=== PATIENT | male | born 1960 | race Caucasian/White ===

== ENCOUNTER 2017-11-12 12:52 | Emergency (ER) | payer MEDICAID | END 2017-11-12 15:52 | disposition home or self-care (01) | LOC: D.ER 12:52 | DX: M25.551 Pain in right hip (principal); W01.0XXA Fall on same level from slipping, tripping and stumbling without subsequent striking against object, initial encounter; Y93.89 Activity, other specified; Y92.019 Unspecified place in single-family (private) house as the place of occurrence of the external cause; J44.9 Chronic obstructive pulmonary disease, unspecified; I10 Essential (primary) hypertension ==

== ENCOUNTER → 2017-12-11 13:24 | Outpatient (CLI) | payer MEDICAID ==
[~2017-12-11 13:24] MED LIST: ACIDOPHILUS LAC1 CAP PO; AMITRIPTYLINE100 MG PO; BUSPAR10 MG PO; COMBIVENT RESPIM4 GM INH; COZAAR50 MG PO; DICLOFENAC SODI50 MG PO; HYDROCHLOROTHIA25 MG PO; KLOR-CON20 MEQ/PKT PO; LIPITOR20 MG PO; NIASPAN500 MG PO; NORVASC10 MG PO; OMEPRAZOLE20 M1 PO; PERCOCET 10/3251 TA1 PO; WELLBUTRIN SR150 MG PO; ZANAFLEX4 MG PO; ZYLOPRIM100 MG PO
[2018-02-03 13:10] VITALS: BMI 36.2
== END | disposition home or self-care (01) ==
LOC: D.MRI 13:24
DX: M87.851 Other osteonecrosis, right femur (principal)

== ENCOUNTER → 2017-12-23 20:26 | Outpatient (CLI) | payer MEDICAID ==
[~2017-12-23 20:26] MED LIST changes: +DILAUDID4 MG PO; +ELIQUIS2.5 MG PO
[2018-02-03 13:10] VITALS: BMI 36.2
== END | disposition home or self-care (01) ==
LOC: D.LABREF 20:26
DX: M87.88 Other osteonecrosis, other site (principal); Z11.8 Encounter for screening for other infectious and parasitic diseases

== ENCOUNTER 2018-01-28 10:00 | Inpatient (IN) | payer MEDICAID ==
[~2018-01-28] VITALS: Ht 185.4 cm; Wt 124.7 kg
--- NOTE | ~2018-01-28 | OP ---
PATIENT NAME: RAFFI OHARA MEDICAL RECORD: [id number] :56 LOCATION:[id number] ADMISSION DATE:02/02/18 SURGEON: STACIE STEWARD MD DATE OF OPERATION: 02/02/2018 PREOPERATIVE DIAGNOSIS: Avascular necrosis of the right femoral head. POSTOPERATIVE DIAGNOSIS: Avascular necrosis of the right femoral head. PROCEDURE: Right total hip arthroplasty. SURGEON: Stacie Steward MD MANAGER ENVIRONMENTAL HEALTH: YULY Rainey. INTRAOPERATIVE COMPLICATIONS: None. SUMMARY OF PATHOLOGIC FINDINGS: Consistent with the preoperative diagnosis of collapsed AVN. The patient had substantial collapse of the hip. IMPLANTS USED: [place] Anato hip system, size 6 stem, size 36 -5 femoral head, size 56 mm Tritanium hemispherical cluster hole shell, a Trident X3 0-degree insert polyethylene alpha code E. ESTIMATED BLOOD LOSS: 200 cc. APPROACH: Anterior lateral. OPERATIVE SUMMARY IN DETAIL: After obtaining the appropriate preoperative orthopedic surgery consent as well as anesthetic consultation, evaluation and clearance, the patient was brought to the operating room and placed on the operating table in supine position. After general laryngeal mask airway was administered, the patient was placed in the left lateral decubitus position. All pressure points well padded to include down leg peroneal pad as well as axillary roll. The patient was held firmly to the operating table using the vacuum pack suction system. Right lower extremity and hip were then prepped and draped in a routine sterile fashion. Curvilinear incision was made over the greater trochanter, taken down to all the IT band, was split in line with fibers of the IT band to reveal the greater trochanter. Gluteus medius minimus was reflected anteriorly and saved for later reapproximation. The hip capsule was split in a T-type fashion. The patient had a very large capsule. Partial capsulectomy was performed. The hip was dislocated and femoral neck cut was made using the femoral neck cutting guide for the Anato hip system. Having completed this, the acetabulum was approached. Circumferential labrectomy was then followed by serial and sequential reaming to 55. A size [address] with excellent capture. A 0-degree polyethylene alpha code E was then put into place, tamped into place, and checked with juvencio Telles. It was stable. Having completed this, attention was turned to the proximal femur. Serial and sequential reaming and broaching were done for a size 6 Anato stem. The size 6 Anato stem was put into place with excellent fit and fill. Trial was undertaken and for leg length equality. It was felt that the -5 was the most appropriate. A -5 Biolox head was put into place, tamped on the Alvarado taper, reduced, taken through range of motion and found to be stable in all planes. Intraoperative radiographs showed good position and placement with anatomical leg length recovery. The wound was copiously irrigated at additional multiple points. At OPERATIVE REPORT [id number] RAFFI OHARA W this point, Cesar Mccartney began closure. Closure was achieved with #5 Vicryl reapproximated to the greater trochanter in a transosseous fashion. This was then followed by closure of the #2 Ethibond of the IT band, followed by #1 Vicryl, 2-0 Vicryl and skin blas. Sterile dressings were applied. The patient was awakened and taken to recovery room in stable condition. All final needle and sponge counts were correct. TRANSINT:[id number] Voice Confirmation ID: [id number] DOCUMENT ID: [id number] NICHELLE PLEITEZ, STACIE LEVINE at 1558 CC: [id number] DICTATION DATE: 02/02/18926 AUTOCLAVE OPERATOR: 02/02/18 1149 ADM IN [place] [id number] [place] [id number]
[~2018-01-28 10:00] MED LIST changes: -DILAUDID4 MG PO; -ELIQUIS2.5 MG PO; -PERCOCET 10/3251 TA1 PO
[2018-01-28 11:45] LABS: BASOPHILS 0.6 % (0-2); HEMATOCRIT 45.1 % (42.0-54.0); HEMOGLOBIN 15.3 g/dL (13.5-17.5); IMMATURE GRANULOCYTES 0.1 % (0-5); LYMPHOCYTES 35.2 % (15-50); MCH 31.9 pg (26.0-34.0); MCHC 33.9 g/dL (31.0-37.0); MCV 94.2 fL (80.0-100.0); MONOCYTES 12.5 % (2-11); NEUTROPHILS 45.6 % (40-80); RBC 4.79 10x6/uL (4.20-6.10); RDW 13.1 % (11.5-14.5); WBC 8.5 10x3/uL (4.8-10.8)
[2018-01-28 11:47] LABS: APPEARANCE CLEAR (CLEAR); BILIRUBIN NEGATIVE (NEGATIVE); COLOR YELLOW (YELLOW); GLUCOSE NEGATIVE (NEGATIVE); KETONE NEGATIVE (NEGATIVE); NITRITE NEGATIVE (NEGATIVE); PROTEIN NEGATIVE (NEGATIVE); SPECIFIC GRAVITY 1.015 (1.005-1.020)
[2018-01-28 11:56] LABS: ANION GAP 10.8 mmol/L (8-16); APTT 27.1 SECONDS (22.8-39.4); CALCIUM 8.5 mg/dL (8.5-10.1); CARBON DIOXIDE 31.3 mmol/L (21.0-32.0); CREATININE - SERUM 1.1 mg/dL (0.6-1.3); INR 0.98 (0.85-1.17); POTASSIUM - SERUM 3.1 mmol/L (3.5-5.1); PROTIME 12.6 SECONDS (11.6-15.0)
[2018-01-28 12:15] LABS: PLATELET COUNT 257 10x3/uL (130-400)
[2018-02-02] MEDS ORDERED: PERCOCET 10/3251 TA1 PO (05:23)
[2018-02-02 05:25] VITALS: BP 118/74; BMI 36.3
[2018-02-02 11:00] VITALS: BP 113/81; BMI 36.3
[2018-02-02 11:01] VITALS: BP 113/81
[2018-02-02 11:15] VITALS: BP 121/81
[2018-02-02 11:37] VITALS: BP 118/68
[2018-02-02 21:44] VITALS: BP 119/66
[2018-02-03 00:54] VITALS: BP 133/74
[2018-02-03 04:00] VITALS: BP 108/74
[2018-02-03 07:27] LABS: HEMATOCRIT 36.8 % (42.0-54.0); HEMOGLOBIN 12.2 g/dL (13.5-17.5); MCH 31.9 pg (26.0-34.0); MCHC 33.2 g/dL (31.0-37.0); MCV 96.1 fL (80.0-100.0); MEAN PLATELET VOLUME 10.5 fL (7.4-10.4); RBC 3.83 10x6/uL (4.20-6.10); RDW 13.9 % (11.5-14.5); WBC 12.5 10x3/uL (4.8-10.8)
[2018-02-03 08:45] VITALS: BP 127/71
[2018-02-03 12:36] VITALS: BP 123/68
[2018-02-03 13:10] VITALS: Ht 185.4 cm; Wt 124.7 kg
[2018-02-03 16:36] VITALS: BP 101/67
[2018-02-03 20:23] VITALS: BP 134/63
[2018-02-04 04:00] VITALS: BP 112/74
[2018-02-04 07:25] LABS: HEMATOCRIT 31.9 % (42.0-54.0); HEMOGLOBIN 10.7 g/dL (13.5-17.5); MCH 31.6 pg (26.0-34.0); MCHC 33.5 g/dL (31.0-37.0); MEAN PLATELET VOLUME 9.9 fL (7.4-10.4); RBC 3.39 10x6/uL (4.20-6.10); RDW 13.6 % (11.5-14.5); WBC 10.3 10x3/uL (4.8-10.8)
[2018-02-04 07:27] LABS: MCV 94.1 fL (80.0-100.0)
[2018-02-04 09:09] VITALS: BP 107/65
[2018-02-04 12:14] VITALS: BP 137/55
[2018-02-04 15:45] VITALS: BP 120/71
[2018-02-04 20:00] VITALS: BP 124/62
[2018-02-05] VITALS: BP 137/59
[2018-02-05 04:00] VITALS: BP 153/85
[2018-02-05] MEDS ORDERED: ELIQUIS2.5 MG PO (06:46)
[2018-02-05] MEDS ORDERED: DILAUDID4 MG PO (06:47)
[2018-02-05 08:24] VITALS: BP 133/67
== END 2018-02-05 12:04 | disposition home or self-care (01) | DRG 470 ==
LOC: D.SDCHOLD 10:00 → D.MS 02-02 05:00 → D.SDCHOLD 02-02 05:00 → D.MS 02-02 10:41
PROVIDERS: Anesthesiology; Orthopaedic Surgery
PROC: 0SR90JZ Replacement of Right Hip Joint with Synthetic Substitute, Open Approach (ICD-10-PCS; principal; 2018-02-02 07:30)
DX: M87.9 Osteonecrosis, unspecified (principal); J44.9 Chronic obstructive pulmonary disease, unspecified; F41.9 Anxiety disorder, unspecified; I10 Essential (primary) hypertension; E78.5 Hyperlipidemia, unspecified; M1A.9XX0 Chronic gout, unspecified, without tophus (tophi)

== ENCOUNTER 2018-02-09 10:24 | Inpatient (IN) | payer MEDICAID ==
[2018-02-09] VITALS (7 sets, daily range): BP systolic 127–140; BP diastolic 74–85
[~2018-02-09] VITALS: Ht 185.4 cm; Wt 124.7 kg
--- NOTE | ~2018-02-09 | OP ---
PATIENT NAME: RAFFI OHARA MEDICAL RECORD: [id number] :56 LOCATION:[id number] ADMISSION DATE:02/09/18 SURGEON: STACIE STEWARD MD DATE OF OPERATION: 02/12/2018 PREOPERATIVE DIAGNOSIS: Periprosthetic fracture of the right hip, status post total hip arthroplasty. POSTOPERATIVE DIAGNOSIS: Periprosthetic fracture of the right hip, status post total hip arthroplasty. PROCEDURE: Revision right total hip arthroplasty. SURGEON: Stacie Steward MD ANESTHESIA: General. INTRAOPERATIVE COMPLICATIONS: None. SUMMARY OF PATHOLOGIC FINDINGS: Unfortunately, the patient's medial calcar had broken in the postoperative period. Evidently, the patient made a misstep, caught himself on the steps and then presented to the ER with inability to ambulate. Subsequent radiograph showed periprosthetic fracture of the medial calcar. He was on Eliquis. Therefore, we had to wait the appropriate 72 hours prior to operative intervention that was done and he presented for intervention today. IMPLANTS USED: InSupply nondenominational modular system with a 235 x 14 stem, 36 + 0 femoral head and a 21 proximal body. ESTIMATED BLOOD LOSS: 300 cc. OPERATIVE SUMMARY IN DETAIL: After obtaining the appropriate preoperative orthopedic surgery consent as well as anesthetic consultation, evaluation and clearance, the patient was brought to the operating room and placed on the operating table in supine position. After general laryngeal mask airway was administered, the patient was placed in a left lateral decubitus position. All pressure points were well-padded to include down leg peroneal pad as well as axillary roll. The patient was held firmly to the operating table using the vacuum pack suction system. The patient's right lower extremity and hip were then prepped and draped in routine sterile fashion. Previously placed blas were removed. The incision utilized for anterolateral approach was then incised again, taken down the level of the IT band. Previously placed sutures were removed. The IT band was then retracted to reveal the patient's gluteus medius and minimus attachment to the greater trochanter. These were then reflected again. The hip capsule was noted and incised. The Ethibond was taken out of this as well. At this point, the fracture was identified. The femoral head was removed and the stem was removed. The fracture was reduced and then cabled back into place using D[place]-Miles cable. Serial and sequential reaming was done for 235 mm bowed stem x 14. Then, proximal reaming was done for a size 21 body. Trials were undertaken with 21 body, it was felt that the 36 + 0 was the most appropriate. A 21 body was put into place and trials were undertaken again and again and it was thought the +3 was the most appropriate, +[address] The hip was reduced. Intraoperative radiograph showed good position and placement of all components. The wound was copiously irrigated at this and in OPERATIVE REPORT [id number] RAFFI OHARA W multiple places. The hip capsule was closed again with #2 Ethibond followed by #5 reapproximation of the gluteus medius minimus again back to the greater trochanter. IT band was closed with #2 Ethibond followed by #1 Vicryl, 2-0 Vicryl and skin blas. Sterile dressings were applied. Prevena wound dressing was applied. The patient was then awakened and taken to recovery room in stable condition. All final needle and sponge counts were correct. TRANSINT:[id number] Voice Confirmation ID: [id number] DOCUMENT ID: [id number] NICHELLE PLEITEZ, STACIE LEVINE at 0939 CC: [id number] DICTATION DATE: 02/18/18812 RETAIL SOLAR ADVISOR: 02/18/18 1103 DIS IN 02/16/18 [facility] [address] [place] [address]
[~2018-02-09 10:24] MED LIST changes: +DILAUDID4 MG PO; +ELIQUIS2.5 MG PO; +PERCOCET 10/3251 TA1 PO
[2018-02-09 11:36] LABS: BASOPHILS 0.1 % (0-2); HEMATOCRIT 32.9 % (42.0-54.0); HEMOGLOBIN 10.7 g/dL (13.5-17.5); IMMATURE GRANULOCYTES 0.3 % (0-5); LYMPHOCYTES 10.2 % (15-50); MCH 31.4 pg (26.0-34.0); MCHC 32.5 g/dL (31.0-37.0); MCV 96.5 fL (80.0-100.0); MEAN PLATELET VOLUME 9.4 fL (7.4-10.4); MONOCYTES 6.1 % (2-11); NEUTROPHILS 82.3 % (40-80); RBC 3.41 10x6/uL (4.20-6.10); WBC 14.4 10x3/uL (4.8-10.8)
[2018-02-09 11:40] LABS: PLATELET COUNT 326 10x3/uL (130-400)
[2018-02-09 11:54] LABS: ALBUMIN 2.7 g/dL (3.4-5.0); ANION GAP 13.1 mmol/L (8-16); BILIRUBIN - TOTAL 1.04 mg/dL (0.2-1.3); CALCIUM 8.8 mg/dL (8.5-10.1); CARBON DIOXIDE 28.4 mmol/L (21.0-32.0); CREATININE - SERUM 1.2 mg/dL (0.6-1.3); POTASSIUM - SERUM 3.5 mmol/L (3.5-5.1); PROTEIN - SERUM 7.2 g/dL (6.4-8.2)
[2018-02-09 19:07] LABS: APPEARANCE CLEAR (CLEAR); BILIRUBIN NEGATIVE (NEGATIVE); COLOR YELLOW (YELLOW); GLUCOSE NEGATIVE (NEGATIVE); KETONE NEGATIVE (NEGATIVE); NITRITE NEGATIVE (NEGATIVE); PROTEIN NEGATIVE (NEGATIVE); UROBILINOGEN NORMAL (NORMAL)
[2018-02-10] VITALS (7 sets, daily range): BP systolic 94–154; BP diastolic 55–82
[2018-02-11 00:27] VITALS: BP 112/65; BMI 36.3
[2018-02-11 04:16] VITALS: BP 120/61
[2018-02-11 06:07] LABS: BASOPHILS 0.4 % (0-2); EOSINOPHILS 1.4 % (0-7); HEMATOCRIT 31.4 % (42.0-54.0); HEMOGLOBIN 10.3 g/dL (13.5-17.5); IMMATURE GRANULOCYTES 0.2 % (0-5); LYMPHOCYTES 18.4 % (15-50); MCH 31.5 pg (26.0-34.0); MCHC 32.8 g/dL (31.0-37.0); MEAN PLATELET VOLUME 9.2 fL (7.4-10.4); MONOCYTES 11.1 % (2-11); NEUTROPHILS 68.5 % (40-80); PLATELET COUNT 381 10x3/uL (130-400); RBC 3.27 10x6/uL (4.20-6.10)
[2018-02-11 06:30] LABS: CALC OSMOLALITY 277 mosm/kg (275-300); CALCIUM 8.4 mg/dL (8.5-10.1); CARBON DIOXIDE 28.5 mmol/L (21.0-32.0); CHLORIDE - SERUM 101 mmol/L (98-107); CREATININE - SERUM 0.9 mg/dL (0.6-1.3); GLUCOSE 109 mg/dL (74-106); POTASSIUM - SERUM 3.6 mmol/L (3.5-5.1); SODIUM 139 mmol/L (136-145); UREA NITROGEN 11 mg/dL (7-18); eGFR NON AFRICAN AMERICAN > 90 mL/min (90-120)
[2018-02-11 06:31] LABS: WBC 9.4 10x3/uL (4.8-10.8)
[2018-02-11 09:42] VITALS: BP 153/77
[2018-02-11 13:36] VITALS: Ht 185.4 cm; Wt 124.7 kg
[2018-02-11 15:09] VITALS: BP 134/56
[2018-02-11 17:29] VITALS: BP 131/76
[2018-02-11 19:50] VITALS: BP 121/64
[2018-02-12] VITALS (11 sets, daily range): BP systolic 97–156; BP diastolic 56–132
[2018-02-12 05:31] LABS: BASOPHILS 0.3 % (0-2); EOSINOPHILS 4.3 % (0-7); HEMATOCRIT 31.2 % (42.0-54.0); HEMOGLOBIN 10.2 g/dL (13.5-17.5); IMMATURE GRANULOCYTES 0.3 % (0-5); LYMPHOCYTES 19.7 % (15-50); MCH 31.3 pg (26.0-34.0); MCHC 32.7 g/dL (31.0-37.0); MCV 95.7 fL (80.0-100.0); MEAN PLATELET VOLUME 8.9 fL (7.4-10.4); MONOCYTES 11.6 % (2-11); NEUTROPHILS 63.8 % (40-80); PLATELET COUNT 333 10x3/uL (130-400); RBC 3.26 10x6/uL (4.20-6.10); RDW 14.3 % (11.5-14.5); WBC 8.8 10x3/uL (4.8-10.8)
[2018-02-12 06:07] LABS: CALC OSMOLALITY 274 mosm/kg (275-300); CALCIUM 8.4 mg/dL (8.5-10.1); CARBON DIOXIDE 29.7 mmol/L (21.0-32.0); CHLORIDE - SERUM 100 mmol/L (98-107); GLUCOSE 115 mg/dL (74-106); POTASSIUM - SERUM 3.4 mmol/L (3.5-5.1); SODIUM 137 mmol/L (136-145); UREA NITROGEN 13 mg/dL (7-18); eGFR NON AFRICAN AMERICAN 81 mL/min (90-120)
[2018-02-13 01:08] VITALS: BP 111/57
[2018-02-13 04:56] VITALS: BP 120/67
[2018-02-13 07:11] LABS: BASOPHILS 0.2 % (0-2); EOSINOPHILS 0.3 % (0-7); HEMATOCRIT 27.5 % (42.0-54.0); IMMATURE GRANULOCYTES 0.3 % (0-5); LYMPHOCYTES 12.3 % (15-50); MCHC 32.7 g/dL (31.0-37.0); MCV 94.8 fL (80.0-100.0); MEAN PLATELET VOLUME 8.8 fL (7.4-10.4); MONOCYTES 7.8 % (2-11); NEUTROPHILS 79.1 % (40-80); PLATELET COUNT 345 10x3/uL (130-400); RDW 14.2 % (11.5-14.5)
[2018-02-13 07:12] LABS: WBC 12.8 10x3/uL (4.8-10.8)
[2018-02-13 07:36] LABS: CALC OSMOLALITY 263 mosm/kg (275-300); CALCIUM 7.8 mg/dL (8.5-10.1); CARBON DIOXIDE 26.8 mmol/L (21.0-32.0); CHLORIDE - SERUM 98 mmol/L (98-107); GLUCOSE 128 mg/dL (74-106); POTASSIUM - SERUM 3.8 mmol/L (3.5-5.1); SODIUM 131 mmol/L (136-145); UREA NITROGEN 10 mg/dL (7-18); eGFR NON AFRICAN AMERICAN 81 mL/min (90-120)
[2018-02-13 08:46] VITALS: BP 100/55
[2018-02-13 11:53] VITALS: BP 132/60
[2018-02-13 20:18] VITALS: BP 114/61
[2018-02-14 00:01] VITALS: BP 100/38
[2018-02-14 04:16] VITALS: BP 94/56
[2018-02-14 08:16] LABS: BASOPHILS 0.1 % (0-2); EOSINOPHILS 0.2 % (0-7); HEMATOCRIT 26.3 % (42.0-54.0); HEMOGLOBIN 8.6 g/dL (13.5-17.5); IMMATURE GRANULOCYTES 0.5 % (0-5); LYMPHOCYTES 10.8 % (15-50); MCHC 32.7 g/dL (31.0-37.0); MCV 94.9 fL (80.0-100.0); MEAN PLATELET VOLUME 9.1 fL (7.4-10.4); NEUTROPHILS 80.4 % (40-80); PLATELET COUNT 352 10x3/uL (130-400); RBC 2.77 10x6/uL (4.20-6.10); RDW 14.2 % (11.5-14.5); WBC 17.2 10x3/uL (4.8-10.8)
[2018-02-14 08:30] LABS: CALC OSMOLALITY 264 mosm/kg (275-300); CARBON DIOXIDE 28.9 mmol/L (21.0-32.0); CHLORIDE - SERUM 100 mmol/L (98-107); CREATININE - SERUM 0.8 mg/dL (0.6-1.3); GLUCOSE 112 mg/dL (74-106); POTASSIUM - SERUM 3.3 mmol/L (3.5-5.1); SODIUM 133 mmol/L (136-145); eGFR NON AFRICAN AMERICAN > 90 mL/min (90-120)
[2018-02-14 08:43] LABS: UREA NITROGEN 7 mg/dL (7-18)
[2018-02-14 10:32] VITALS: BP 115/60; BP 116/60
[2018-02-14 14:33] VITALS: BP 100/56; BP 116/60
[2018-02-14 20:20] VITALS: BP 104/66
[2018-02-15 00:15] VITALS: BP 91/46
[2018-02-15 04:14] VITALS: BP 129/55
[2018-02-15 06:00] LABS: BASOPHILS 0.1 % (0-2); EOSINOPHILS 1.3 % (0-7); HEMATOCRIT 25.6 % (42.0-54.0); HEMOGLOBIN 8.2 g/dL (13.5-17.5); IMMATURE GRANULOCYTES 0.3 % (0-5); LYMPHOCYTES 7.2 % (15-50); MCH 30.3 pg (26.0-34.0); MCV 94.5 fL (80.0-100.0); MEAN PLATELET VOLUME 8.9 fL (7.4-10.4); NEUTROPHILS 83.1 % (40-80); PLATELET COUNT 337 10x3/uL (130-400); RBC 2.71 10x6/uL (4.20-6.10); RDW 14.3 % (11.5-14.5); WBC 15.5 10x3/uL (4.8-10.8)
[2018-02-15 06:25] LABS: CALC OSMOLALITY 271 mosm/kg (275-300); CALCIUM 7.5 mg/dL (8.5-10.1); CARBON DIOXIDE 28.7 mmol/L (21.0-32.0); CHLORIDE - SERUM 100 mmol/L (98-107); CREATININE - SERUM 0.8 mg/dL (0.6-1.3); GLUCOSE 137 mg/dL (74-106); POTASSIUM - SERUM 3.4 mmol/L (3.5-5.1); SODIUM 136 mmol/L (136-145); UREA NITROGEN 8 mg/dL (7-18); eGFR NON AFRICAN AMERICAN > 90 mL/min (90-120)
[2018-02-15 09:37] VITALS: BP 123/68
[2018-02-15 14:35] VITALS: BP 96/53
[2018-02-15 16:50] VITALS: BP 105/69
[2018-02-15 19:55] LABS: APPEARANCE CLEAR (CLEAR); BILIRUBIN NEGATIVE (NEGATIVE); COLOR YELLOW (YELLOW); GLUCOSE NEGATIVE (NEGATIVE); KETONE NEGATIVE (NEGATIVE); NITRITE NEGATIVE (NEGATIVE); PROTEIN NEGATIVE (NEGATIVE); SPECIFIC GRAVITY 1.005 (1.005-1.020); UROBILINOGEN NORMAL (NORMAL)
[2018-02-15 20:35] VITALS: BP 100/52
[2018-02-16 01:31] VITALS: BP 108/66
[2018-02-16 04:48] LABS: BASOPHILS 0.3 % (0-2); EOSINOPHILS 2.8 % (0-7); HEMATOCRIT 25.2 % (42.0-54.0); HEMOGLOBIN 8.2 g/dL (13.5-17.5); IMMATURE GRANULOCYTES 0.3 % (0-5); LYMPHOCYTES 11.3 % (15-50); MCH 30.6 pg (26.0-34.0); MCHC 32.5 g/dL (31.0-37.0); MEAN PLATELET VOLUME 9.1 fL (7.4-10.4); MONOCYTES 9.9 % (2-11); NEUTROPHILS 75.4 % (40-80); PLATELET COUNT 389 10x3/uL (130-400); RBC 2.68 10x6/uL (4.20-6.10); RDW 14.5 % (11.5-14.5)
[2018-02-16 04:50] LABS: WBC 11.6 10x3/uL (4.8-10.8)
[2018-02-16 05:00] LABS: CALC OSMOLALITY 278 mosm/kg (275-300); CALCIUM 8.2 mg/dL (8.5-10.1); CARBON DIOXIDE 29.4 mmol/L (21.0-32.0); CHLORIDE - SERUM 100 mmol/L (98-107); CREATININE - SERUM 0.8 mg/dL (0.6-1.3); GLUCOSE 128 mg/dL (74-106); POTASSIUM - SERUM 3.6 mmol/L (3.5-5.1); SODIUM 139 mmol/L (136-145); UREA NITROGEN 9 mg/dL (7-18); eGFR NON AFRICAN AMERICAN > 90 mL/min (90-120)
[2018-02-16] MEDS ORDERED: ELIQUIS2.5 MG PO (07:43)
[2018-02-16] MEDS ORDERED: DILAUDID4 MG PO (07:44)
[2018-02-16] MEDS ORDERED: VALIUM 2 MG TAB2 MG PO (07:50)
[2018-02-16 08:10] VITALS: BP 124/65
[2018-02-16 13:16] VITALS: BP 112/58
== END 2018-02-16 18:01 | disposition home health service (06) | DRG 467 ==
LOC: D.ER 10:24 → D.EDHOLD 14:03 → D.MS 14:03
PROVIDERS: Family Medicine; Internal Medicine Nephrology; Orthopaedic Surgery
PROC: 0SP90JZ Removal of Synthetic Substitute from Right Hip Joint, Open Approach (ICD-10-PCS; 2018-02-12)
PROC: 0SR90JZ Replacement of Right Hip Joint with Synthetic Substitute, Open Approach (ICD-10-PCS; principal; 2018-02-12 13:30)
DX: M97.01XA Periprosthetic fracture around internal prosthetic right hip joint, initial encounter (principal); D62 Acute posthemorrhagic anemia; Z96.641 Presence of right artificial hip joint; I10 Essential (primary) hypertension; J44.9 Chronic obstructive pulmonary disease, unspecified; F32.9 Major depressive disorder, single episode, unspecified; K21.9 Gastro-esophageal reflux disease without esophagitis; E66.01 Morbid (severe) obesity due to excess calories; Z68.36 Body mass index [BMI] 36.0-36.9, adult; M10.9 Gout, unspecified; F41.9 Anxiety disorder, unspecified; E78.5 Hyperlipidemia, unspecified; G89.29 Other chronic pain

== ENCOUNTER → 2018-04-17 12:57 | Outpatient (CLI) | payer MEDICAID ==
[2018-02-11 13:36] VITALS: BMI 36.2
[~2018-04-17 12:57] MED LIST changes: +VALIUM 2 MG TAB2 MG PO
== END | disposition home or self-care (01) ==
LOC: D.US 12:57
DX: R60.0 Localized edema (principal)

== ENCOUNTER 2019-04-03 15:27 | Emergency (ER) | payer MEDICAID ==
[~2019-04-03] VITALS: Ht 185.4 cm; Wt 125.0 kg
[2019-04-03 15:33] VITALS: Ht 185.4 cm; Wt 125.0 kg
[2019-04-03 16:37] LABS: BASOPHILS 0.3 % (0-2); EOSINOPHILS 1.6 % (0-7); HEMATOCRIT 47.1 % (42.0-54.0); HEMOGLOBIN 15.4 g/dL (13.5-17.5); IMMATURE GRANULOCYTES 0.3 % (0-5); LYMPHOCYTES 13.3 % (15-50); MCH 32.4 pg (26.0-34.0); MCHC 32.7 g/dL (31.0-37.0); MCV 99.2 fL (80.0-100.0); MONOCYTES 9.1 % (2-11); NEUTROPHILS 75.4 % (40-80); PLATELET COUNT 220 10x3/uL (130-400); RBC 4.75 10x6/uL (4.20-6.10); WBC 13.2 10x3/uL (4.8-10.8)
[2019-04-03 16:53] LABS: APTT 25.4 SECONDS (22.8-39.4); INR 0.98 (0.85-1.17); PROTIME 12.5 SECONDS (11.6-15.0)
[2019-04-03 17:06] LABS: ALBUMIN 3.6 g/dL (3.4-5.0); ALKALINE PHOSPHATASE 154 U/L (46-116); ALT (SGPT) 37 U/L (10-68); BILIRUBIN - TOTAL 0.57 mg/dL (0.2-1.3); CALC OSMOLALITY 281 mosm/kg (275-300); CALCIUM 8.7 mg/dL (8.5-10.1); CARBON DIOXIDE 32.4 mmol/L (21.0-32.0); CHLORIDE - SERUM 101 mmol/L (98-107); CREATININE - SERUM 0.9 mg/dL (0.6-1.3); GLUCOSE 111 mg/dL (74-106); POTASSIUM - SERUM 3.5 mmol/L (3.5-5.1); PROTEIN - SERUM 7.1 g/dL (6.4-8.2); SODIUM 141 mmol/L (136-145); UREA NITROGEN 12 mg/dL (7-18); eGFR NON AFRICAN AMERICAN > 90 mL/min (90-120)
[2019-04-03 21:08] VITALS: BP 141/78
== END 2019-04-03 21:10 | disposition home or self-care (01) ==
LOC: D.ER 15:27
PROVIDERS: Family Medicine
DX: T84.020A Dislocation of internal right hip prosthesis, initial encounter (principal); X58.XXXA Exposure to other specified factors, initial encounter; I10 Essential (primary) hypertension; J44.9 Chronic obstructive pulmonary disease, unspecified

== ENCOUNTER 2020-01-03 10:50 | Day surgery (SDC) | payer MEDICAID ==
[~2020-01-03] VITALS: Ht 182.9 cm; Wt 135.0 kg
[~2020-01-03 10:50] MED LIST changes: +BELBUCA SL; +PROTONIX20 MG
[2020-01-03 10:52] VITALS: BP 117/81; Ht 182.9 cm; Wt 135.0 kg
[2020-01-03 12:11] LABS: BASOPHILS 0.4 % (0-2); HEMATOCRIT 46.5 % (42.0-54.0); HEMOGLOBIN 15.2 g/dL (13.5-17.5); IMMATURE GRANULOCYTES 0.1 % (0-5); MCH 32.7 pg (26.0-34.0); MCHC 32.7 g/dL (31.0-37.0); MEAN PLATELET VOLUME 9.8 fL (7.4-10.4); MONOCYTES 8.3 % (2-11); NEUTROPHILS 76.2 % (40-80); PLATELET COUNT 209 10x3/uL (130-400); RBC 4.65 10x6/uL (4.20-6.10); RDW 13.4 % (11.5-14.5); WBC 9.4 10x3/uL (4.8-10.8)
[2020-01-03 12:20] LABS: CALC OSMOLALITY 275 mosm/kg (275-300); CALCIUM 8.3 mg/dL (8.5-10.1); CARBON DIOXIDE 28.3 mmol/L (21.0-32.0); CHLORIDE - SERUM 102 mmol/L (98-107); GLUCOSE 126 mg/dL (74-106); SODIUM 137 mmol/L (136-145); UREA NITROGEN 12 mg/dL (7-18); eGFR NON AFRICAN AMERICAN 81 mL/min (90-120)
[2020-01-03 12:22] LABS: INR 1.02 (0.85-1.17); PROTIME 13.4 SECONDS (11.6-15.0)
[2020-01-03 12:34] LABS: ALBUMIN 3.7 g/dL (3.4-5.0); ALKALINE PHOSPHATASE 146 U/L (30-120); ALT (SGPT) 53 U/L (10-68); BILIRUBIN - TOTAL 1.04 mg/dL (0.2-1.3); PROTEIN - SERUM 7.1 g/dL (6.4-8.2)
[2020-01-03] MEDS ORDERED: HYDROCODON-ACE1 EA10 PO (16:01)
--- NOTE | 2020-01-03 17:20 | NUR ---
PIV DC'D WITH TIP INTACT. DISCHARGE INSTRUCTIONS REVIEWED WITH PATIENT AND SPOUSE, PATIENT AMBULATING AROUND ROOM WITHOUT UNSTEADINESS OR DIZZINESS
== END 2020-01-03 17:20 | disposition home or self-care (01) ==
LOC: D.ER 10:50 → EDSTATUS 13:30 → D.ER 14:48
PROVIDERS: Family Medicine; ATTEND Orthopaedic Surgery
DX: S73.004A Unspecified dislocation of right hip, initial encounter (principal); I11.0 Hypertensive heart disease with heart failure; I50.9 Heart failure, unspecified; J44.9 Chronic obstructive pulmonary disease, unspecified; X58.XXXA Exposure to other specified factors, initial encounter

== ENCOUNTER 2020-01-03 16:02 | Day surgery (SDC) | payer MEDICAID ==
[2019-12-30 10:19] LABS: HEMATOCRIT 44.7 % (42.0-54.0); HEMOGLOBIN 14.5 g/dL (13.5-17.5); MCH 32.4 pg (26.0-34.0); MCHC 32.4 g/dL (31.0-37.0); MCV 99.8 fL (80.0-100.0); MEAN PLATELET VOLUME 9.5 fL (7.4-10.4); RBC 4.48 10x6/uL (4.20-6.10); RDW 13.5 % (11.5-14.5); WBC 11.1 10x3/uL (4.8-10.8)
[2019-12-30 10:20] LABS: CALCIUM 8.5 mg/dL (8.5-10.1); CARBON DIOXIDE 27.8 mmol/L (21.0-32.0); CREATININE - SERUM 1.3 mg/dL (0.6-1.3)
[2019-12-30 10:23] LABS: POTASSIUM - SERUM 2.8 mmol/L (3.5-5.1)
[~2020-01-03] VITALS: Ht 182.9 cm; Wt 122.5 kg
[2020-01-03 10:52] VITALS: Ht 182.9 cm; Wt 122.5 kg
[~2020-01-03 16:02] MED LIST changes: +HYDROCODON-ACE1 EA10 PO
== END 2020-01-03 17:35 | disposition home or self-care (01) ==
LOC: D.OPS 16:02 → D.PAN 18:45 → D.OPS 18:45
PROVIDERS: Anesthesiology; ATTEND Orthopaedic Surgery
DX: S73.005A Unspecified dislocation of left hip, initial encounter (principal); X58.XXXA Exposure to other specified factors, initial encounter; M67.432 Ganglion, left wrist

== ENCOUNTER 2020-03-01 16:33 | Emergency (ER) | payer MEDICAID ==
[~2020-03-01] VITALS: Ht 185.4 cm; Wt 127.3 kg
[2020-03-01 16:42] VITALS: Ht 185.4 cm; Wt 127.3 kg
[2020-03-01 17:04] LABS: HEMATOCRIT 45.2 % (42.0-54.0); HEMOGLOBIN 14.8 g/dL (13.5-17.5); LYMPHOCYTES 25.1 % (15-50); MCH 31.8 pg (26.0-34.0); MCHC 32.7 g/dL (31.0-37.0); MEAN PLATELET VOLUME 9.8 fL (7.4-10.4); NEUTROPHILS 62.4 % (40-80); PLATELET COUNT 198 10x3/uL (130-400); RBC 4.66 10x6/uL (4.20-6.10); RDW 13.4 % (11.5-14.5); WBC 7.3 10x3/uL (4.8-10.8)
[2020-03-01 17:19] LABS: APTT 27.5 SECONDS (22.8-39.4); INR 1.04 (0.85-1.17); PROTIME 13.5 SECONDS (11.6-15.0)
[2020-03-01 17:20] LABS: D-DIMER-QUANTITATIVE 0.59 ug/mLFEU (0.20-0.54)
[2020-03-01 17:29] LABS: ALBUMIN 3.7 g/dL (3.4-5.0); ALKALINE PHOSPHATASE 142 U/L (30-120); ALT (SGPT) 45 U/L (10-68); CALC OSMOLALITY 276 mosm/kg (275-300); CALCIUM 8.7 mg/dL (8.5-10.1); CARBON DIOXIDE 28.6 mmol/L (21.0-32.0); CHLORIDE - SERUM 101 mmol/L (98-107); CKMB 1.2 U/L (0.0-3.6); CREATINE KINASE 169 UL (21-232); CREATININE - SERUM 1.1 mg/dL (0.6-1.3); GLUCOSE 137 mg/dL (74-106); PRO BNP 37 pg/mL (0-125); PROTEIN - SERUM 7.1 g/dL (6.4-8.2); SODIUM 138 mmol/L (136-145); TROPONIN-I < 0.017 ng/mL (0.000-0.060); UREA NITROGEN 11 mg/dL (7-18); eGFR NON AFRICAN AMERICAN 72 mL/min (90-120)
[2020-03-01 17:35] LABS: POTASSIUM - SERUM 2.9 mmol/L (3.5-5.1)
[2020-03-01] MEDS ORDERED: STERAPRED DS 1010 MG PO (19:15)
[2020-03-01 19:32] VITALS: BP 140/72
== END 2020-03-01 19:32 | disposition home or self-care (01) ==
LOC: D.ER 16:33
DX: R60.9 Edema, unspecified (principal); J44.9 Chronic obstructive pulmonary disease, unspecified; I10 Essential (primary) hypertension; I50.9 Heart failure, unspecified

== ENCOUNTER 2020-09-19 22:32 | Observation (INO) | payer MEDICAID ==
[~2020-09-19] VITALS: Ht 185.4 cm; Wt 125.0 kg
[~2020-09-19 22:32] MED LIST changes: +CLEOCIN HCL300 MG PO; +OMNICEF300 MG PO; +STERAPRED DS 1010 MG PO
--- NOTE | 2020-09-20 00:23 | NUR ---
PLACED CONDOM CATH ON PT PER PT REQUEST, PT TOLERATED WELL
[2020-09-20 00:40] LABS: BASOPHILS 0.4 % (0-2); EOSINOPHILS 0.5 % (0-7); HEMATOCRIT 48.5 % (42.0-54.0); IMMATURE GRANULOCYTES 0.1 % (0-5); LYMPHOCYTE ABS# 1.59 10x3/uL (1.32-3.57); LYMPHOCYTES 18.9 % (15-50); MCH 32.5 pg (26.0-34.0); MCV 98.4 fL (80.0-100.0); MEAN PLATELET VOLUME 9.7 fL (7.4-10.4); MONOCYTES 13.2 % (2-11); NEUTROPHIL ABS# 5.64 10x3/uL (1.78-5.38); NEUTROPHILS 66.9 % (40-80); PLATELET COUNT 261 10x3/uL (130-400); RBC 4.93 10x6/uL (4.20-6.10); RDW 14.3 % (11.5-14.5); WBC 8.4 10x3/uL (4.8-10.8)
--- NOTE | 2020-09-20 00:40 | NUR ---
REC'D PATIENT TO ROOM 1213 FROM ER. PATIENT DENIES NEEDS AT THIS TIME. IV TO LEFT HAND. NO REDNESS, SWELLING, OR PAIN NOTED. PATIENT REQUESTED A NEW IV BE PLACED. PLACED 20G TO RIGHT FA ON FIRST ATTEMPT. PATIENT DENIES OTHER NEEDS AT THIS TIME. BED IN LOWEST POSITION, CALL LIGHT IN REACH. ENCOURAGED PATIENT TO CALL IF HE HAS NEEDS.
[2020-09-20 00:46] LABS: CALC OSMOLALITY 278 mosm/kg (275-300); CARBON DIOXIDE 24.3 mmol/L (21.0-32.0); CHLORIDE - SERUM 101 mmol/L (98-107); CREATININE - SERUM 1.4 mg/dL (0.6-1.3); GLUCOSE 105 mg/dL (74-106); POTASSIUM - SERUM 3.7 mmol/L (3.5-5.1); SODIUM 139 mmol/L (136-145); UREA NITROGEN 16 mg/dL (7-18); eGFR NON AFRICAN AMERICAN 54 mL/min (90-120)
[2020-09-20 00:57] LABS: APTT 25.2 SECONDS (22.8-39.4); INR 1.04 (0.85-1.17); PROTIME 12.6 SECONDS (11.6-15.0)
[2020-09-20 01:08] VITALS: Ht 185.4 cm; Wt 125.0 kg
[2020-09-20 01:12] LABS: ALBUMIN 4.2 g/dL (3.4-5.0); ALKALINE PHOSPHATASE 132 U/L (30-120); ALT (SGPT) 60 U/L (10-68); BILIRUBIN - TOTAL 1.09 mg/dL (0.2-1.3); CREATINE KINASE 405 UL (21-232); PROTEIN - SERUM 7.7 g/dL (6.4-8.2)
[2020-09-20 01:16] LABS: CKMB 2.9 U/L (0.0-3.6)
[2020-09-20 04:00] VITALS: BP 142/78
--- NOTE | 2020-09-20 05:31 | NUR ---
ENCOURAGED PATIENT TO CHANGE OUT OF CLOTHING IN HOSPITAL GOWN. PATIENT STATED HE HAS DONE THIS TWICE BEFORE AND HE HAS LEFT HIS OWN CLOTHING ON.
[2020-09-20 06:16] LABS: MAGNESIUM - SERUM 2.1 mg/dL (1.8-2.4); TROPONIN-I < 0.017 ng/mL (0.000-0.060)
--- NOTE | 2020-09-20 08:06 | NUR ---
PT BACK FROM SURGERY. DOING WELL. SITTING UP IN BED. CALLING TO TALK TO UPDATE HER. DIET ORDER SO PT CAN HAVE BREAKFAST. CL IN REACH. NO FURTHER NEEDS AT THIS TIME. WCTM
--- NOTE | 2020-09-20 10:32 | NUR ---
PT SITTING UP IN CHAIR. STATES HE IS NOW READY FOR DISCHARGE. QUESTIONS TO THE DRAW SHEET FROM EMS WOULD BE REPURPOSED HERE OR IF HE COULD HAVE IT. I TOLD HIM THAT WE COULD NOT REPURPOSE THEM AND THAT IT WAS HIS. HE WOULD LIKE A BAG TO TAKE IT HOME WITH. CL IN REACH. CHAIR ALARM ON. WCTM
--- NOTE | 2020-09-20 12:12 | NUR ---
IV THERAPY REMOVED FROM LEFT HAND AND RIGHT FOREARM WITH TIP INTACT. PT STATES REGARDLESS OF DR BLANCO DISCHARGING HIM HE IS LEAVING. CL IN REACH. WILL GET IN TOUCH WITH DR BLANCO.
[2020-09-20 12:16] VITALS: BP 116/65
--- NOTE | 2020-09-20 12:57 | NUR ---
PT DISCHARGE INSTRUCTIONS GIVEN. PT VERBALIZED UNDERSTANDING. PT VERBALIZING CALLING HIS PCP FOR A FOLLOW UP APPOINTMENT IN A WEEK.
--- NOTE | 2020-09-20 16:23 | MORECARE ---
CASE MANAGEMENT DISCHARGE SUMMARY PATIENT: RAFFI OHARA UNIT: [id number] ADM DATE: 09/20/20 AGE: 60 : 56 SEX: M ROOM/BED: D.1213 AUTHOR: IRAIDADOC PHYSICIAN: REFERRING PHYSICIAN: LOLA MARQUEZ DO DATE OF SERVICE: 09/20/20 Case Management Discharge Planning Summary COMMENTS ENTERED DATE: 09/20/20 16:15 CT COMMENT TYPE: Discharge Planning REVIEWER: Eve Su CM met with patient at bedside. Patient states that he lives at home with his and denies any discharge needs. He states that he has a walker and other dme needed. He states that his will pick him up. CM will continue to follow and assist as needed with discharge planning / needs. DCP REVIEW SUMMARY ANTICIPATED D/C DATE: EXPECTED LOS : CASE STATUS: DCP Initiated INITIAL REVIEW: 09/20/2020 INITIAL REVIEWER: Eve Su FINAL DISCHARGE DISPOSITION: 01 : Home or Self Care (Routine Discharge) FINAL REVIEWER: Eve Su FINAL REVIEW DATE: DCP Focus Questions & Answers DCP REV -DCP Review Added on: 09/20/20 4:07 pm QUESTION: ANSWER DCP Screen High Risk Factors: : None Walking limitation: Patient stated self rated walking limitation present? : Yes Age: : 43 - 62 Prior living environment: : Lives with others Disability ranking: : Grade 2: Slight disability DCP Evaluation Patient's ability to cope with chronic illness : d. No chronic illness Mental health screen: : No mental health history Would patient like to participate in any Care Coordination programs (if applicable): : Not applicable Patient gives permission to discuss discharge plans with: (name, relationship and number) : CRISTINA OHARA- - [phone] Physical Status: : Independent with ADL's Baseline cognitive status: : *Oriented to person, place, situation, time and present Living Arrangements: : Home with Spouse/Significant Other Pharmacy name(s): : [facility] Does Patient have transportation to get home and to follow-up medical appointments when discharged from the hospital? : Yes Does the patient have electricity at home? : Yes Does the patient have running water in their house? : Yes Equipment in use: : Bedside Commode Equipment in use: : Shower Chair Equipment in use: : Walker - Rollator Equipment in use: : Walker - Standard Patient's current cognitive status: : *Oriented to person, place, situation, time and present Functional screen assessment: : Basic needs can adequately be met by self Patient with capacity for self-care or can be cared for in same environment as prior to hospitalization? : Yes Does the patient have the ability to pay for or attain post discharge needs / services? : Yes Is there a likelihood that the patient will require additional services to return to the preadmission environment? : No Patient and/or caregiver agree upon recommended discharge plan? : Yes Physical environment modification needed / anticipated for discharge: : No Planned post hospital services available for patient? : N/A Planned post hospital services covered by insurance plan? : N/A DCP Re-evaluation Would patient like to participate in any Care Coordination programs (if applicable): : Not applicable PATIENT: RAFFI OHARA ENCOUNTER: [id number] MEDICAL RECORD#: [id number] ADMISSION DATE: 09/20/2020 DISCHARGE DATE: 09/20/2020 ATTENDING MD: LOLA HERNANDES : AGE: 60 MARITAL STATUS: M DC PLAN ID: [id number] FACILITY: [facility] PRINTED ON: 09/20/20 16:23 CT All edits/amendments must be made on the electronic document DICTATION DATE: 09/20/201622 CLINICAL GENETICIST: SHEYLA 09/20/201622 RPT#: [id number] DC DATE:09/20/20 STATUS: DIS IN [facility] [address] [place] [address] END OF REPORT
--- NOTE | 2020-09-21 18:09 | OP ---
PATIENT NAME: RAFFI PERRY MEDICAL RECORD: [id number] :56 [facility] ADMISSION DATE:09/20/20 SURGEON: GINO BLANCO MD DATE OF OPERATION: 09/20/2020 PREOPERATIVE DIAGNOSIS: Right total hip dislocation. POSTOPERATIVE DIAGNOSIS: Right total hip dislocation. PROCEDURE PERFORMED: Closed reduction, right total hip. INDICATIONS FOR THE PROCEDURE: Mr. Perry is a 60-year-old male who was bending over last night to reach in a cabinet when he dislocated his right hip. He is 3 years status post total hip arthroplasty and has dislocated once or twice before, but was doing fine until this occurred. He was seen in the Emergency Department in [place] where x-rays showed a dislocation and then was transferred to [place] for further evaluation and management. Arrangements were made for him to come to the operating room this morning for closed reduction. Risks, benefits and alternatives of surgery were discussed with the patient and consent was obtained. DESCRIPTION OF PROCEDURE: The patient was met in the holding area where his identity and confirmation of procedure was performed. The right lower extremity was marked. He was taken to the operating room where anesthesia was administered. He was then positioned on the operating table and a timeout was performed. We then began our procedure by performing traction with the hip flexed at 90 degrees. With some traction and internal rotation, we were able to achieve a closed reduction. This reduction was confirmed under imaging. The hip was then taken through a range of motion with flexion up to 90 degrees as well as full internal and external rotation noted to be stable. Final images were saved. This completed our procedure. The patient was transferred back to his bed and taken to the recovery room in stable condition. POSTOPERATIVE PLAN: The patient is going to return to the floor for continued care. Physical therapy will be consulted to assist with mobility. Weightbearing as tolerated right lower extremity. Strict hip flexion no greater than 90 degrees. If he is doing well with physical therapy, he should be able to return home today. We will see him back in clinic in a couple of weeks. COMPLICATIONS: None. ANESTHESIA: Conscious sedation. TRANSINT:[id number] Voice Confirmation ID: [id number] DOCUMENT ID: [id number] GINO BLANCO MD at 1807 CC: [id number] DICTATION DATE: 09/20/20 0754 AUTOMATED PROCESS OPERATOR: 09/20/20 1043 DIS IN 09/20/20 [place] [id number] [place] [id number]
== END 2020-09-20 13:00 | disposition home or self-care (01) ==
LOC: D.ER 22:32 → D.M3 09-20 00:18 → OBSVTIME 09-20 00:18 → D.M3 09-20 00:18
PROVIDERS: Family Medicine; ADMIT Family Medicine; ATTEND Family Medicine
DX: M24.451 Recurrent dislocation, right hip (principal); N17.9 Acute kidney failure, unspecified; R79.89 Other specified abnormal findings of blood chemistry; E78.5 Hyperlipidemia, unspecified; J44.9 Chronic obstructive pulmonary disease, unspecified; K21.9 Gastro-esophageal reflux disease without esophagitis; F41.9 Anxiety disorder, unspecified; E66.01 Morbid (severe) obesity due to excess calories; I11.0 Hypertensive heart disease with heart failure; I50.9 Heart failure, unspecified; G62.9 Polyneuropathy, unspecified